=== PATIENT | female | born 1975 | race Hispanic/Latino ===

== ENCOUNTER 2016-11-08 18:47 | Emergency (ER) | payer OTHER ==
[~2016-11-08] VITALS: Ht 152.4 cm; Wt 62.0 kg
[~2016-11-08 18:47] MED LIST: NAPROSYN500 MG PO; PRILOSEC40 MG PO; SYNTHROID88 MCG PO
[2016-11-08 19:20] LABS: HEMATOCRIT 41.7 % (36.0-46.0); MCH 29.1 PG (29.0-34.0); MCHC 33.6 G/DL (30.0-36.0); MCV 86.7 FL (83-99); PLATELET COUNT 301 K/uL (156-360); RBC DIS.WIDTH-CV 12.8 % (11.8-14.6); RBC DIS.WIDTH-SD 40.6 % (39-53); RED BLOOD COUNT 4.81 M/uL (3.80-5.20); WHITE BLOOD COUNT 8.3 K/uL (4.1-10.2)
[2016-11-08 19:32] LABS: CHLORIDE 110 mEq/L (99-109); POTASSIUM 4.1 mEq/L (3.7-5.4); SODIUM 140 mEq/L (136-147)
[2016-11-08 19:34] LABS: GLUCOSE 90 mg/dL (70-99)
[2016-11-08 19:35] LABS: ANION GAP 8 MEQ/L (2-14)
[2016-11-08 19:36] LABS: TOTAL BILIRUBIN 0.3 mg/dL (0.0-1.0)
[2016-11-08 19:38] LABS: ALKALINE PHOSPHATASE 92 IU/L (3-129); GFR ESTIMATE (CALCULATED) > 59 mL/min/
[2016-11-08 19:39] LABS: UREA NITROGEN (BUN) 16 mg/dL (9-23)
[2016-11-08 19:47] LABS: QUANTITATIVE HCG < 4.0 MIU/ML
[2016-11-08 20:36] LABS: BILIRUBIN NEGATIVE; BLOOD NEGATIVE; COLOR YELLOW ((YELLOW)); GLUCOSE (STRIP) NEGATIVE; KETONES NEGATIVE; LEUKOCYTES NEGATIVE; NITRITE NEGATIVE; PROTEIN (STRIP) 30; UROBILINOGEN 0.2 MG/DL (0.2-1.0)
[2016-11-08 20:45] LABS: ADD MIUA? NO; UCUL ADDED? NO
[2016-11-08 22:19] VITALS: BP 139/87
== END 2016-11-08 22:19 | disposition home or self-care (01) ==
LOC: EME 18:47
DX: R10.32 Left lower quadrant pain (principal); K59.00 Constipation, unspecified; R10.12 Left upper quadrant pain
CPT/HCPCS: 74000; 80053; 81003; 84702; 85027; 99281; 99283; J0500